=== PATIENT | male | born 1995 | race Caucasian/White ===

== ENCOUNTER 2023-03-16 08:47 | Emergency (ER) | payer MEDICAID ==
[~2023-03-16] VITALS: Ht 172.7 cm; Wt 70.0 kg
[2023-03-16 08:55] VITALS: TEMP 97.6; O2SAT 97
[2023-03-16] MEDS ORDERED: ACETAMINOPHEN 325MG TABLET PO ONE (09:30)
[2023-03-16 12:34] VITALS: BP 113/75; PULSE 76; RESP 16
== END 2023-03-16 12:37 | disposition home or self-care (01) ==
LOC: ER 08:47
DX: R55 Syncope and collapse (principal); S62.501A Fracture of unspecified phalanx of right thumb, initial encounter for closed fracture; W31.9XXA Contact with unspecified machinery, initial encounter; Y93.89 Activity, other specified; Y92.89 Other specified places as the place of occurrence of the external cause; Y99.8 Other external cause status
CPT/HCPCS: 73130; 70450; 93005; 99284; Z7610